=== PATIENT | female | born 1945 | race Caucasian/White ===

== ENCOUNTER 2017-01-25 17:01 | Observation (INO) | payer MEDICARE ==
[~2017-01-25] VITALS: Ht 152.4 cm; Wt 70.0 kg
[2017-01-25] VITALS (7 sets, daily range): BP systolic 142–220; BP diastolic 73–119; PULSE 66–90; RESP 15–20; TEMP 97.6; O2SAT 96–99
[~2017-01-25 17:01] MED LIST: ASPI81CH CHEW; CLON0.2T PO; LACTCAP8 PO; LISI40TA PO; LOVA20TA PO; MACR100C2 PO; METO100T PO; NAPR500T PO; PRIL20CA9 PO; SYMB160A INH; TIOT12.9 INH
[2017-01-25] MEDS ORDERED: SODIUM CHLORIDE 0.9% FLUSH 10 ML FLUSH IVF PRN (17:15)
[2017-01-25] MEDS ORDERED: RANI150T PO (17:19)
--- NOTE | 2017-01-25 17:19 | PD ---
HPI Chief Complaint: Chest Pain Time Seen by Provider: 17:09 Travel History International Travel<30 days: No Contact w/Intl Traveler<30days: No Traveled to known affect area: No History of Present Illness HPI 71-year-old female PMH of COPD, GERD, HTN, HLD, PVD, chronic back pain 2/2 OA presents to the ED for evaluation approximate 18 hours sharp, intermittent, left -sided chest pain. Onset at rest, states it kept her up all night. Patient points to the superolateral aspect of the right breast as the area of pain. Radiates to the right neck. Accompanied by mild nausea. Patient denies palpitations, SOB. Endorses chronic nonproductive cough, no worse today. She endorses chronic back pain that radiates to the flanks bilaterally for "months. " No change today. Patient endorses 30+ pack year smoking history, quit in 2009. She is followed by Dr. Malik, cardiology. PFSH Past Medical History Arthritis: Yes Asthma: No Blood Disorders: No Anxiety: No Depression: Yes Heart Rhythm Problems: No Cancer: No Cardiac Catheterization: No Cardiovascular Problems: Yes High Cholesterol: Yes Chemotherapy: No Chest Pain: No Congestive Heart Failure: No COPD: Yes Diabetes: No Diminished Hearing: Yes ([place]) Endocrine: No GERD: Yes Genitourinary: No Hiatal Hernia: Yes Heparin Induced Thrombocytopen: No Hypertension: Yes Immune Disorder: No Musculoskeletal: Yes Neurologic: Yes (VERTIGO) Psychiatric: No Reproductive: No Respiratory: Yes (COPD) Myocardial Infarction: No Pancreatitis: Yes Radiation Therapy: No Sleep Apnea: No Thyroid Disease: No Tetanus Vaccination: > 5 Years Influenza Vaccination: No PNEUMOCCOCAL Vaccine (Year): 2 Menopausal: Yes : 3 Para: 3 Miscarriage: 0 : 0 Tubal Ligation: Yes Past Surgical History Cholecystectomy: Yes Coronary Artery Bypass Graft: No Tonsillectomy: Yes Other Surgery: Yes (FACIAL SURGERY, stents placed to ble, COLLAPSED LUNG-LEFT ) Family History Family Myocardial Infarction: Yes (Dad had a ELIZABETH) Social History Alcohol Use: No (QUIT SEPTEMBER 2009, 10 drinks a day prior) Tobacco Use: No (Quit 03/08/10, 1 ppd prior) Substance Use: No Allergies-Medications (Allergen,Severity, Reaction): Coded Allergies: No Known Allergies (Verified , 01/25/17) Reported Meds & Prescriptions Reported Meds & Active Scripts Active Reported Ranitidine (Ranitidine HCl) 150 Mg Tab 150 Mg PO HS Spiriva Respimat Inh (Tiotropium Inh) 2.5 Mcg/Act Aero 2 Puff INH DAILY 2.5 mcg = 1 inhalation Symbicort Inh (Budesonide/Formoterol Fumarate) 160-4.5 Mcg/Act Aero 2 Puff INH Q12HR Aspirin 81 Mg Chew 81 Mg CHEW DAILY Clonidine (Clonidine HCl) 0.2 Mg Tab 0.2 Mg PO BID Lovastatin 20 Mg Tab 20 Mg PO DAILY Lisinopril 40 Mg Tab 40 Mg PO DAILY Metoprolol Tartrate 100 Mg Tab 100 Mg PO BID Naproxen 500 Mg Tab 500 Mg PO BID Review of Systems Except as stated in HPI: all other systems reviewed are Neg Physical Exam Narrative GENERAL: Well-nourished, well-developed pleasant white female in no acute distress.. SKIN: Focused skin assessment warm/dry. HEAD: Normocephalic. EYES: No scleral icterus. No injection or drainage. NECK: Supple, trachea midline. No JVD or lymphadenopathy. CARDIOVASCULAR: Regular rate and rhythm without murmurs, gallops, or rubs. CHEST: Nontender throughout without deformity or crepitus. No retractions or use of accessory muscles. RESPIRATORY: Breath sounds there and equal bilaterally. No accessory muscle use. GASTROINTESTINAL: Abdomen soft, non-tender, nondistended. Active bowel sounds. MUSCULOSKELETAL: No cyanosis, or edema. BACK: Nontender without obvious deformity. No CVA tenderness. Data Data Last Documented VS Vital Signs Date Time Temp Pulse Resp B/P (MAP) Pulse Ox O2 Delivery O2 Flow Rate FiO2 01/25/17 19:30 70 20 174/92 (119) 99 Room Air Orders Orders Electrocardiogram (01/25/17 ) Ckmb (Isoenzyme) Profile (01/25/17 17:10) Complete Blood Count With Diff (01/25/17 17:10) Comprehensive Metabolic Panel (01/25/17 17:10) Magnesium (Mg) (01/25/17 17:10) Prothrombin Time / Inr (Pt) (01/25/17 17:10) Act Partial Throm Time (Ptt) (01/25/17 17:10) Troponin I (01/25/17 17:10) Chest, Single Ap (01/25/17 17:10) Ecg Monitoring (01/25/17 17:10) Bilateral Bp Monitoring (01/25/17 17:10) Iv Access Insert/Monitor (01/25/17 17:10) Oximetry (01/25/17 17:10) Sodium Chloride 0.9% Flush (Ns Flush) (01/25/17 17:15) Nitroglycerin 2% Oint (Nitroglycerin 2% (01/25/17 19:15) Naproxen (Naprosyn) (01/25/17 19:15) Place In Observation (01/25/17 19:35) Activity Bed Rest With Brp (01/25/17 19:35) Vital Signs (Adult) Q4H (01/25/17 19:35) Cardiac Rhythm .As Directed (01/25/17 19:35) Notify Dr: Other .PRN (01/25/17 19:35) Notify Parameters (01/25/17 19:35) Resp Oxygen Nasal Cannula (01/25/17 ) Diet Heart Healthy (01/25/17 Dinner) Ckmb (Isoenzyme) Profile (01/25/17 19:35) Ckmb (Isoenzyme) Profile (01/25/17 22:35) Troponin I (01/25/17 19:35) Troponin I (01/25/17 22:35) Electrocardiogram (01/25/17 19:35) Electrocardiogram (01/25/17 22:35) ^ Obtain (01/25/17 19:35) Sodium Chloride 0.9% Flush (Ns Flush) (01/25/17 19:45) Sodium Chloride 0.9% Flush (Ns Flush) (01/25/17 21:00) Assistant Professor Of Business / Telemetry LUDY.Q8H (01/25/17 19:35) Admit Order (Ed Use Only) (01/25/17 20:06) Labs Laboratory Tests Test 01/25/17 17:45 01/25/17 20:00 White Blood Count 6.5 TH/MM3 Red Blood Count 3.78 MIL/MM3 Hemoglobin 11.8 GM/DL Hematocrit 34.5 % Mean Corpuscular Volume 91.5 FL Mean Corpuscular Hemoglobin 31.2 PG Mean Corpuscular Hemoglobin Concent 34.1 % Red Cell Distribution Width 14.7 % Platelet Count 196 TH/MM3 Mean Platelet Volume 8.1 FL Neutrophils (%) (Auto) 61.4 % Lymphocytes (%) (Auto) 26.7 % Monocytes (%) (Auto) 9.2 % Eosinophils (%) (Auto) 1.9 % Basophils (%) (Auto) 0.8 % Neutrophils # (Auto) 4.0 TH/MM3 Lymphocytes # (Auto) 1.7 TH/MM3 Monocytes # (Auto) 0.6 TH/MM3 Eosinophils # (Auto) 0.1 TH/MM3 Basophils # (Auto) 0.1 TH/MM3 CBC Comment DIFF FINAL Differential Comment Prothrombin Time 10.3 SEC Prothromb Time International Ratio 0.9 RATIO Activated Partial Thromboplast Time 26.6 SEC Blood Urea Nitrogen 12 MG/DL Creatinine 0.81 MG/DL Random Glucose 104 MG/DL Total Protein 7.1 GM/DL Albumin 3.9 GM/DL Calcium Level 8.9 MG/DL Magnesium Level 2.1 MG/DL Alkaline Phosphatase 87 U/L Aspartate Amino Transf (AST/SGOT) 20 U/L Alanine Aminotransferase (ALT/SGPT) 27 U/L Total Bilirubin 1.7 MG/DL Sodium Level 134 MEQ/L Potassium Level 3.8 MEQ/L Chloride Level 98 MEQ/L Carbon Dioxide Level 28.7 MEQ/L Anion Gap 7 MEQ/L Estimat Glomerular Filtration Rate 70 ML/MIN Total Creatine Kinase 64 U/L 67 U/L Troponin I LESS THAN 0.02 NG/ML LESS THAN 0.02 NG/ML MDM Medical Decision Making Medical Screen Exam Complete: Yes Emergency Medical Condition: Yes Differential Diagnosis chest pain versus acute on chronic pain versus ACS versus Narrative Course 71-year-old female PMH of COPD, GERD, HTN, HLD, PVD, chronic back pain 2/2 OA presents to the ED for evaluation approximate 18 hours intermittent, left-sided chest pain. Onset while the patient was attempting to go to sleep last night, states it kept her up all night. Patient points to the superolateral aspect of the right breast as the area of pain. Radiates to the right neck. Accompanied by mild nausea. Patient denies palpitations, SOB. She endorses chronic back pain that radiates to the flanks bilaterally for "months." No change today. Patient endorses 30+ pack year smoking history, quit in 2009. She is followed by Dr. Malik, cardiology. BP elevated on presentation. Physical exam reveals a nontoxic-appearing white female in no acute distress. No appreciable M/R/G. No tenderness to palpation of the precordium. Chest CTAB. Equal pulses in the distal extremities. No lower extremity edema. CBC: WBC 6.5. Hemoglobin 11.8. Coags: INR 0.9. CMP: Bilirubin 1.7. Cardiac enzymes: negative 1. CXR: compensated cardiomegaly, otherwise negative. EKG: Rate 67, sinus rhythm, AL interval 170, QRS 84, QTC 420. Normal axis. No acute ST changes. Reviewed by Dr. Harris. I discussed the results of the workup with Dr. Harris. She recommends observation in the [facility]. I discussed this with the patient who is agreeable. Please see [facility] notes for disposition. Marcelina Mcleod Jan 25, 2017 17:19
--- NOTE | 2017-01-25 17:43 | RADRPT ---
EXAM DATE/TIME: 01/25/2017 17:23 [facility] COMPARISON: CHEST SINGLE AP, March 29, 2015, 11:17. INDICATIONS : Chest Pain with Nausea MEDICAL HISTORY : Cardiovascular disease. Hypertension. Hernia, hiatal.COPD SURGICAL HISTORY : Cholecystectomy. Tubal ligation. ENCOUNTER: Initial ACUITY: 1 day PAIN SCORE: 6/10 LOCATION: Bilateral chest FINDINGS: The lungs are clear. The heart is minimally enlarged. The pulmonary vascularity is normal. There is n o evidence for infiltrate or failure. The portion of the bony skeleton visualized is unremarkable. CONCLUSION: Compensated cardiomegaly otherwise negative Board Certified Radiologist. This report was verified electronically.
[2017-01-25 18:23] LABS: BASOPHIL # 0.1 TH/MM3 (0-0.2); BASOPHIL % 0.8 % (0.0-2.0); EOSINOPHIL # 0.1 TH/MM3 (0-0.4); EOSINOPHIL % 1.9 % (0.0-4.0); HEMATOCRIT 34.5 % (35.0-46.0); HEMO FLAGS DIFF FINAL; LYMPH % 26.7 % (9.0-44.0); LYMPHOCYTE # 1.7 TH/MM3 (1.0-4.8); MEAN CELL VOLUME 91.5 FL (80.0-100.0); MEAN CORPUSCULAR HEMOGLOBIN 31.2 PG (27.0-34.0); MEAN CORPUSCULAR HGB CONC 34.1 % (32.0-36.0); MONO % 9.2 % (0.0-8.0); NEUT % 61.4 % (16.0-70.0); PLATELET COUNT 196 TH/MM3 (150-450); RED BLOOD COUNT 3.78 MIL/MM3 (4.00-5.30); RED CELL DISTRIBUTION WIDTH 14.7 % (11.6-17.2); WHITE BLOOD COUNT 6.5 TH/MM3 (4.0-11.0)
[2017-01-25 18:27] LABS: APTT (PATIENT) 26.6 SEC (24.3-30.1); INTERNATIONAL NORMALIZED RATIO 0.9 RATIO; PROTHROMBIN TIME - PATIENT 10.3 SEC (9.8-11.6)
[2017-01-25 18:33] LABS: ALT (GPT) 27 U/L (10-53); ANION GAP 7 MEQ/L (5-15); AST (GOT) 20 U/L (15-37); BICARBONATE 28.7 MEQ/L (21.0-32.0); BLOOD UREA NITROGEN 12 MG/DL (7-18); CHLORIDE 98 MEQ/L (98-107); GLOMERULAR FILTRATION RATE 70 ML/MIN (>89); MAGNESIUM 2.1 MG/DL (1.5-2.5); POTASSIUM 3.8 MEQ/L (3.5-5.1); SODIUM (NA) 134 MEQ/L (136-145)
[2017-01-25 18:37] LABS: ALKALINE PHOSPHATASE 87 U/L (45-117); TOTAL BILIRUBIN ADULT 1.7 MG/DL (0.2-1.0)
[2017-01-25 18:41] LABS: CREATINE KINASE 64 U/L (26-192)
[2017-01-25] MEDS ORDERED: NAPROXEN 500 MG TAB PO ONE (19:15)
[2017-01-25] MEDS ORDERED: NITROGLYCERIN 2% OINT 1 GM PACKET TOP ONE (19:15)
[2017-01-25] MEDS ORDERED: SODIUM CHLORIDE 0.9% FLUSH 10 ML FLUSH IV FLUSH PRN (19:45)
[2017-01-25] MEDS: SODIUM CHLORIDE 0.9% FLUSH 10 ML FLUSH IV FLUSH SCH (20:23)
[2017-01-25 21:03] LABS: CREATINE KINASE 67 U/L (26-192)
[2017-01-26 00:10] VITALS: BP 125/95; PULSE 65; RESP 16; TEMP 98; O2SAT 98
[2017-01-26 00:39] VITALS: PULSE 59
[2017-01-26 03:35] VITALS: BP 135/70; PULSE 65; RESP 16; TEMP 98.1; O2SAT 98
[2017-01-26 07:46] VITALS: BP 144/90; PULSE 70; RESP 16; TEMP 98.1; O2SAT 96
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
[2017-01-26] MEDS ORDERED: ONDANSETRON HCL 4 MG/2 ML VIAL IV PRN (08:45)
[2017-01-26] MEDS ORDERED: NON-FORMULARY DRUG (Tiotropium Inh (Spiriva Respimat Inh) 2 PUFF) INH SCH (09:00)
[2017-01-26] MEDS ORDERED: METOPROLOL TARTRATE 100 MG TAB PO SCH (09:00)
[2017-01-26] MEDS ORDERED: LISINOPRIL 20 MG TAB PO SCH (09:00)
[2017-01-26] MEDS ORDERED: BUDESONIDE-FORMOTEROL 160/4.5 MCG INHALER INH SCH (09:00)
[2017-01-26] MEDS ORDERED: ACETAMINOPHEN 500 MG CPLT PO PRN (09:00)
[2017-01-26] MEDS ORDERED: PRAVASTATIN SOD 20 MG TAB PO SCH (09:00)
[2017-01-26] MEDS ORDERED: AMLO5TAB2 PO (09:18)
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
[2017-01-26] MEDS: SODIUM CHLORIDE 0.9% FLUSH 10 ML FLUSH IV FLUSH SCH (10:28)
--- NOTE | 2017-01-26 17:02 | EKG ---
Date Performed: 01/25/2017 Time Performed: 23:39:37 PTAGE: 71 years EKG: SINUS BRADYCARDIA SEPTAL MYOCARDIAL INFARCTION ABNORMAL ECG Since PREVIOUS TRACING , no significant change noted PREVIOUS TRACIN01/25/2017 23.36 DOCTOR: Yary Atkins Interpretating Date/Time 01/27/2017 06:50:41
--- NOTE | 2017-01-26 17:03 | EKG ---
Date Performed: 01/25/2017 Time Performed: 20:07:48 PTAGE: 71 years EKG: Sinus rhythm SEPTAL MYOCARDIAL INFARCTION ABNORMAL ECG Since previous tracing, no significant change noted NO PREVIOUS TRACING DOCTOR: Yary Atkins Interpretating Date/Time 01/26/2017 17:02:35
--- NOTE | 2017-01-26 17:03 | EKG ---
Date Performed: 01/25/2017 Time Performed: 17:26:41 PTAGE: 71 years EKG: Sinus rhythm SEPTAL MYOCARDIAL INFARCTION ABNORMAL ECG Since PREVIOUS TRACING , no significant change noted PREVIOUS TRACIN01/25/2017 17.18 DOCTOR: Yary Atkins Interpretating Date/Time 01/26/2017 17:02:53
[2017-01-26] MEDS ORDERED: FAMOTIDINE 20 MG TAB PO SCH (21:00)
== END 2017-01-26 10:43 | disposition home or self-care (01) ==
LOC: NEPC 17:01 → NEDA 20:07 → NEPGCP 20:54
PROVIDERS: ADMIT Internal Medicine Cardiovascular Disease; ATTEND Internal Medicine Cardiovascular Disease
DX: R07.89 Other chest pain (principal); I10 Essential (primary) hypertension; M54.9 Dorsalgia, unspecified; G89.29 Other chronic pain; R94.31 Abnormal electrocardiogram [ECG] [EKG]; K21.9 Gastro-esophageal reflux disease without esophagitis
CPT/HCPCS: 71010; 80053; 82550; 83735; 84484; 85025; 85610; 85730; 93005; 99285; G0378